=== PATIENT | female | born 1940 | race Caucasian/White ===

== ENCOUNTER 2018-02-22 07:03 | Inpatient (IN) | payer OTHER ==
[~2018-02-22] VITALS: Ht 165.1 cm; Wt 74.0 kg
[~2018-02-22 07:03] MED LIST: ACET325 PO; ASPI81CH PO; DOCU100 PO; Hair, Skin & N1 EACH PO; IBUP800 PO; MECL25 PO; METTREX2.5 PO; ROXICODONE5 MG PO; SULF500 PO; SULF500A PO; WOMEN MULTIVITAMIN PO
[2018-02-22 08:00] LABS: Hematocrit 27.7 % (33.0-51.0); Hemoglobin 9.4 g/dL (11.5-16.0); Mean Corpuscular HGB 30.1 pg (26.0-34.0); Mean Corpuscular HGB Conc 33.9 g/dL (31.5-36.5); Mean Corpuscular Volume 89 fL (80-100); Mean Platelet Volume 10.7 fL (9.1-12.4); Platelet Count 163 K/mm3 (150-400); RDW Coefficient Variation 14.6 % (11.7-14.2); RDW Standard Deviation 46.8 fL (35.1-46.3); Red Blood Cell Count 3.12 M/mm3 (3.80-5.20); White Blood Cell Count 4.16 K/mm3 (4.00-11.30)
[2018-02-22 08:20] LABS: Alanine Aminotransfer (ALT/SGP 96 U/L (12-78); Albumin, Blood 2.7 g/dL (3.4-5.0); Albumin/Globulin Ratio 0.7 (0.8-1.8); Alk Phos 206 U/L (50-136); Anion Gap 12 mmol/L (6-16); Aspartate Aminotrans (AST/SGOT 71 U/L (12-37); Bilirubin, Total 0.9 mg/dL (0.1-1.0); Blood Urea Nitrogen 19 mg/dL (8-24); Bun/Creatinine Ratio 18.4 (12.0-20.0); CO2, Blood 18 mmol/L (21-32); Calcium, Blood 8.4 mg/dL (8.5-10.1); Chloride, Blood 97 mmol/L (98-108); Creatinine, Blood 1.03 mg/dL (0.40-1.00); Globulin, Blood 3.8 g/dL (2.2-4.0); Glomerular Filtration Rate 55 (60-); Glucose, Blood 154 mg/dL (70-99); Potassium, Blood 3.9 mmol/L (3.5-5.5); Sodium, Blood 127 mmol/L (136-145); Total Protein, Blood 6.5 g/dL (6.4-8.2); Troponin I <0.015 ng/mL (0.000-0.040)
[2018-02-22 08:27] LABS: BAND PERCENT MAN 11 % (0-8); BASOPHILS PERCENT MAN 0 % (0-2); EOSINOPHILS PERCENT MAN 0 % (0-6); LYMPHOCYTES PERCENT MAN 17 % (21-46); MONOCYTES ABSOLUTE MAN 0.49 K/mm3 (0.16-1.47); MONOCYTES PERCENT MAN 12 % (4-13); NEUTROPHILS ABSOLUTE MAN 2.95 K/mm3 (1.96-9.15); SEG NEUTROPHILS PERCENT MAN 60 % (41-73); TOTAL CELLS COUNTED 100
[2018-02-23 04:52] LABS: Hematocrit 25.6 % (33.0-51.0); Hemoglobin 8.7 g/dL (11.5-16.0); Mean Corpuscular HGB 29.9 pg (26.0-34.0); Mean Corpuscular Volume 88 fL (80-100); Mean Platelet Volume 11.1 fL (9.1-12.4); Platelet Count 163 K/mm3 (150-400); RDW Coefficient Variation 14.7 % (11.7-14.2); RDW Standard Deviation 47.5 fL (35.1-46.3); Red Blood Cell Count 2.91 M/mm3 (3.80-5.20); White Blood Cell Count 5.55 K/mm3 (4.00-11.30)
[2018-02-23 05:13] LABS: Bun/Creatinine Ratio 20.2 (12.0-20.0); Calcium, Blood 8.3 mg/dL (8.5-10.1); Creatinine, Blood 1.29 mg/dL (0.40-1.00); Potassium, Blood 4.4 mmol/L (3.5-5.5)
[2018-02-23 05:21] LABS: BAND PERCENT MAN 11 % (0-8); BASOPHILS PERCENT MAN 0 % (0-2); EOSINOPHILS PERCENT MAN 0 % (0-6); LYMPHOCYTES ABSOLUTE MAN 0.88 K/mm3 (0.84-5.20); LYMPHOCYTES PERCENT MAN 16 % (21-46); MONOCYTES ABSOLUTE MAN 0.61 K/mm3 (0.16-1.47); MONOCYTES PERCENT MAN 11 % (4-13); NEUTROPHILS ABSOLUTE MAN 4.05 K/mm3 (1.96-9.15); SEG NEUTROPHILS PERCENT MAN 62 % (41-73); TOTAL CELLS COUNTED 100
[2018-02-23 13:22] LABS: Percent Saturation 6.5 % (15.0-50.0)
[2018-02-23 14:29] LABS: IMMATURE RETIC FRACTION 23.4 % (2.3-16.0); RETIC HGB EQUIVALENT 25.1 pg (28.20-36.60); RETICULOCYTE ABSOLUTE 0.0586 M/mm3 (0.0200-0.1100)
[2018-02-23 22:10] LABS: Stool Occult Blood Guaiac 1 Neg (Neg)
[2018-02-25 05:45] LABS: BASOPHILS ABSOLUTE AUTO 0.04 K/mm3 (0.00-0.23); BASOPHILS PERCENT AUTO 1 % (0-2); EOSINOPHILS ABSOLUTE AUTO 0.03 K/mm3 (0.00-0.68); EOSINOPHILS PERCENT AUTO 0 % (0-6); Hematocrit 28.8 % (33.0-51.0); Hemoglobin 9.6 g/dL (11.5-16.0); IMMATURE GRAN ABSOLUTE AUTO 0.11 K/mm3 (0.00-0.10); IMMATURE GRAN PERCENT AUTO 2 % (0-1); LYMPHOCYTES PERCENT AUTO 16 % (21-46); MONOCYTES ABSOLUTE AUTO 0.84 K/mm3 (0.16-1.47); MONOCYTES PERCENT AUTO 11 % (4-13); Mean Corpuscular HGB 29.4 pg (26.0-34.0); Mean Corpuscular HGB Conc 33.3 g/dL (31.5-36.5); Mean Corpuscular Volume 88 fL (80-100); Mean Platelet Volume 10.6 fL (9.1-12.4); NEUTROPHILS ABSOLUTE AUTO 5.25 K/mm3 (1.96-9.15); NEUTROPHILS PERCENT AUTO 70 % (41-73); NRBC ABSOLUTE 0.02 K/mm3 (0.00-0.02); NRBC Auto 0.3 /100 WBC (0.0-0.2); Platelet Count 215 K/mm3 (150-400); RDW Coefficient Variation 15.1 % (11.7-14.2); RDW Standard Deviation 49.2 fL (35.1-46.3); Red Blood Cell Count 3.26 M/mm3 (3.80-5.20); White Blood Cell Count 7.47 K/mm3 (4.00-11.30)
[2018-02-25 06:09] LABS: Albumin, Blood 2.5 g/dL (3.4-5.0); Albumin/Globulin Ratio 0.6 (0.8-1.8); Bilirubin, Total 0.6 mg/dL (0.1-1.0); Bun/Creatinine Ratio 25.9 (12.0-20.0); Calcium, Blood 8.5 mg/dL (8.5-10.1); Creatinine, Blood 1.12 mg/dL (0.40-1.00); Globulin, Blood 4.2 g/dL (2.2-4.0); Magnesium, Blood 2.1 mg/dL (1.6-2.4); Potassium, Blood 4.2 mmol/L (3.5-5.5); Total Protein, Blood 6.7 g/dL (6.4-8.2)
[2018-02-25] MEDS ORDERED: ACET325 PO (11:02)
[2018-02-25] MEDS ORDERED: AZIT250 PO (11:03)
[2018-02-25] MEDS ORDERED: GUAI600T33 PO (11:03)
[2018-02-25] MEDS ORDERED: XARELTO15 MG PO (11:04)
== END 2018-02-25 11:15 | disposition home or self-care (01) | DRG 291 ==
LOC: ER 07:03 → PCU 10:16 → MEDS 10:16 → PCU 02-23 19:30 → MEDS 02-24 13:58 → ENPENDDIS 02-25 10:00 → MEDS 02-25 11:15
PROVIDERS: Hospitalist; Internal Medicine; Physician Assistant
DX: I50.33 Acute on chronic diastolic (congestive) heart failure (principal); J18.9 Pneumonia, unspecified organism; E87.1 Hypo-osmolality and hyponatremia; R00.1 Bradycardia, unspecified; D64.9 Anemia, unspecified; M06.9 Rheumatoid arthritis, unspecified; I48.0 Paroxysmal atrial fibrillation; E83.51 Hypocalcemia; F17.210 Nicotine dependence, cigarettes, uncomplicated
CPT/HCPCS: 36415; 71046; 80048; 80053; 82272; 82330; 82607; 82728; 82746; 83540; 83550; 83735; 83880; 84145; 84443; 84484; 85025; 85045; 87070; 87205; 93005; 93010; 93306; 94640; 96365; 96368; 96375; 99285; J0456; J0696; J1885; J1940; J7050

== ENCOUNTER 2019-02-16 05:52 | Day surgery (SDC) | payer MEDICARE ==
[~2019-02-16] VITALS: Ht 165.1 cm; Wt 77.0 kg
[~2019-02-16 05:52] MED LIST changes: +AZIT250 PO; +GUAI600T33 PO; +XARELTO15 MG PO
[2019-02-16 06:44] LABS: BASOPHILS ABSOLUTE AUTO 0.03 K/mm3 (0.00-0.23); BASOPHILS PERCENT AUTO 0 % (0-2); EOSINOPHILS ABSOLUTE AUTO 0.02 K/mm3 (0.00-0.68); EOSINOPHILS PERCENT AUTO 0 % (0-6); Hematocrit 30.4 % (33.0-51.0); Hemoglobin 10.1 g/dL (11.5-16.0); IMMATURE GRAN ABSOLUTE AUTO 0.06 K/mm3 (0.00-0.10); IMMATURE GRAN PERCENT AUTO 1 % (0-1); LYMPHOCYTES ABSOLUTE AUTO 1.16 K/mm3 (0.84-5.20); LYMPHOCYTES PERCENT AUTO 12 % (21-46); MONOCYTES ABSOLUTE AUTO 0.48 K/mm3 (0.16-1.47); MONOCYTES PERCENT AUTO 5 % (4-13); Mean Corpuscular HGB 29.2 pg (26.0-34.0); Mean Corpuscular HGB Conc 33.2 g/dL (31.5-36.5); Mean Corpuscular Volume 88 fL (80-100); Mean Platelet Volume 9.7 fL (9.1-12.4); NEUTROPHILS ABSOLUTE AUTO 8.38 K/mm3 (1.96-9.15); NEUTROPHILS PERCENT AUTO 83 % (41-73); Platelet Count 250 K/mm3 (150-400); RDW Coefficient Variation 14.6 % (11.7-14.2); RDW Standard Deviation 46.7 fL (35.1-46.3); Red Blood Cell Count 3.46 M/mm3 (3.80-5.20); White Blood Cell Count 10.13 K/mm3 (4.00-11.30)
[2019-02-16] MEDS ORDERED: CRESTOR PO (06:47)
[2019-02-16] MEDS ORDERED: TORSE20 PO (06:48)
[2019-02-16] MEDS ORDERED: POTA10T PO (06:49)
[2019-02-16] MEDS ORDERED: Coq-10100 MG PO (06:50)
[2019-02-16] MEDS ORDERED: Norco 5-325 Ta1 EACH PO (06:51)
[2019-02-16 06:59] LABS: International Normalized Ratio 1.04
[2019-02-16 07:02] LABS: Bun/Creatinine Ratio 24.2 (12.0-20.0); Calcium, Blood 8.4 mg/dL (8.5-10.1); Creatinine, Blood 1.28 mg/dL (0.40-1.00); Potassium, Blood 4.3 mmol/L (3.5-5.5)
--- NOTE | 2019-02-16 09:24 | NUR ---
PT RETURNED TO RECOVERY ROOM ON BED. PT DENIES CHEST PAIN. PT DRINKING COFFEE AND EATING BREAKFAST WITH CALL LIGHT IN REACH. LACW PACERMAKER SITE STABLE WITH PRESSURE DRESSING AND ICE BAG OVER SITE. PT'S IN ROOM.
--- NOTE | 2019-02-16 09:41 | NUR ---
2LB WT PLACED OVER LACW DPPM SITE.
--- NOTE | 2019-02-16 09:49 | NUR ---
LUNG TONES DIMINISHED UPPER LOBES WITH SLIGHT EXPIRATORY WHEEZES. BILAT LOWER LOBES COARSE; PT HAS NON PRODUCTIVE COUGH.
--- NOTE | 2019-02-16 11:49 | NUR ---
DISCHARGE INSTRUCTIONS REVIEWED ALL QUESTIONS ANSWERED. FULL REPORT PROVIDED ESPERANZA TO ASSUME CARE OF PT. HIRO GARCIA TO INTERROGATE DEVICE PER DR SLATER PRIOR TO DISCHARGE. DR SLATER HAS REVIEWED XRAY.
== END 2019-02-16 12:45 | disposition home or self-care (01) ==
LOC: MHTC 05:52 → ORSCMMR 05:52 → MHTC 05:54
PROVIDERS: Internal Medicine Cardiovascular Disease
DX: I44.30 Unspecified atrioventricular block (principal); I10 Essential (primary) hypertension; I48.0 Paroxysmal atrial fibrillation; E78.5 Hyperlipidemia, unspecified; F17.210 Nicotine dependence, cigarettes, uncomplicated; Z79.899 Other long term (current) drug therapy; Z79.01 Long term (current) use of anticoagulants; Z88.8 Allergy status to other drugs, medicaments and biological substances; Z88.2 Allergy status to sulfonamides
CPT/HCPCS: 33208; 71046; 80048; 85025; 85610; 93005; 93010; 99152; 99153; C1785; C1898; J0690; J1644; J1940; J2250; J3010; J7030; J7040

== ENCOUNTER 2021-12-05 17:35 | Inpatient (IN) | payer MEDICARE ==
[~2021-12-05] VITALS: Ht 162.6 cm; Wt 63.5 kg
[~2021-12-05 17:35] MED LIST changes: +CRESTOR PO; +Coq-10100 MG PO; +Norco 5-325 Ta1 EACH PO; +POTA10T PO; +TORSE20 PO
[2021-12-05 18:13] LABS: Hematocrit 32.2 % (33.0-51.0); Hemoglobin 11.1 g/dL (11.5-16.0); Mean Corpuscular HGB 26.6 pg (26.0-34.0); Mean Corpuscular HGB Conc 34.5 g/dL (31.5-36.5); Mean Corpuscular Volume 77 fL (80-100); Mean Platelet Volume 10.7 fL (9.1-12.4); Platelet Count 147 K/mm3 (150-400); RDW Coefficient Variation 17.1 % (11.7-14.2); RDW Standard Deviation 47.9 fL (35.1-46.3); Red Blood Cell Count 4.18 M/mm3 (3.80-5.20)
[2021-12-05 18:16] LABS: BASOPHILS ABSOLUTE AUTO 0.01 K/mm3 (0.00-0.23); BASOPHILS PERCENT AUTO 1 % (0-2); EOSINOPHILS PERCENT AUTO 0 % (0-6); IMMATURE GRAN ABSOLUTE AUTO 0.01 K/mm3 (0.00-0.10); IMMATURE GRAN PERCENT AUTO 1 % (0-1); LYMPHOCYTES ABSOLUTE AUTO 0.42 K/mm3 (0.84-5.20); LYMPHOCYTES PERCENT AUTO 42 % (21-46); MONOCYTES ABSOLUTE AUTO 0.12 K/mm3 (0.16-1.47); MONOCYTES PERCENT AUTO 12 % (4-13); NEUTROPHILS ABSOLUTE AUTO 0.43 K/mm3 (1.96-9.15); NEUTROPHILS PERCENT AUTO 44 % (41-73)
[2021-12-05 18:28] LABS: Bun/Creatinine Ratio 28.4 (12.0-20.0); Calcium, Blood 8.5 mg/dL (8.5-10.1); Creatinine, Blood 1.41 mg/dL (0.40-1.00); Magnesium, Blood 1.6 mg/dL (1.6-2.4)
[2021-12-05 18:36] LABS: White Blood Cell Count 0.99 K/mm3 (4.00-11.30)
[2021-12-06] MEDS ORDERED: FURO20 PO (00:12)
[2021-12-06] MEDS ORDERED: Crestor20 MG PO (00:14)
[2021-12-06] MEDS ORDERED: Prednisone10 MG PO (00:15)
[2021-12-06] MEDS ORDERED: AZIT250 PO (00:16)
[2021-12-06 04:30] LABS: Hematocrit 31.4 % (33.0-51.0); Hemoglobin 10.6 g/dL (11.5-16.0); Mean Corpuscular HGB 26.4 pg (26.0-34.0); Mean Corpuscular HGB Conc 33.8 g/dL (31.5-36.5); Mean Corpuscular Volume 78 fL (80-100); Mean Platelet Volume 9.8 fL (9.1-12.4); Platelet Count 116 K/mm3 (150-400); RDW Coefficient Variation 17.2 % (11.7-14.2); RDW Standard Deviation 48.9 fL (35.1-46.3); Red Blood Cell Count 4.02 M/mm3 (3.80-5.20)
[2021-12-06 04:47] LABS: White Blood Cell Count 0.77 K/mm3 (4.00-11.30)
[2021-12-06 04:51] LABS: Albumin/Globulin Ratio 0.5 (0.8-1.8); Bilirubin, Total 0.5 mg/dL (0.1-1.0); Bun/Creatinine Ratio 24.8 (12.0-20.0); Calcium, Blood 8.5 mg/dL (8.5-10.1); Creatinine, Blood 1.33 mg/dL (0.40-1.00); Globulin, Blood 4.2 g/dL (2.2-4.0); Potassium, Blood 4.6 mmol/L (3.5-5.5); Total Protein, Blood 6.2 g/dL (6.4-8.2)
[2021-12-06 04:59] LABS: BAND PERCENT MAN 10 % (0-8); BASOPHILS PERCENT MAN 0 % (0-2); EOSINOPHILS PERCENT MAN 0 % (0-6); LYMPHOCYTES ABSOLUTE MAN 0.41 K/mm3 (0.84-5.20); LYMPHOCYTES PERCENT MAN 54 % (21-46); MONOCYTES ABSOLUTE MAN 0.13 K/mm3 (0.16-1.47); MONOCYTES PERCENT MAN 18 % (4-13); NEUTROPHILS ABSOLUTE MAN 0.21 K/mm3 (1.96-9.15); SEG NEUTROPHILS PERCENT MAN 18 % (41-73); TOTAL CELLS COUNTED 50
--- NOTE | 2021-12-06 05:31 | NUR ---
ADMISSION: PT IS A/OX4. SHE CAME IN D/T A WORSENING AND SOB. SHE DOES NOT USE O2 AT BASELINE AND HAS BEEN ON 4L HERE TO STAY >90%. SHE WAS COVID - DOWN IN THE ED. SHE IS STEADY ON HER FEET, BUT WAS ASKED TO USE THE CALL LIGHT IF GETTING OOB. HER WBC WAS 0.77 DOWN FROM 0.99 AND THE MD WAS NOTIFIED W/ NO NEW ORDERS. SHE HAS BEEN PLEASANT AND COOPERATIVE WITH ALL CARE. HER CALL LIGHT IS WITHIN REACH AND WE'LL CONTINUE TO MONITOR.
--- NOTE | 2021-12-06 05:41 | NUR ---
SHIFT SUMMARY: THE PT IS A/OX4. SHE STILL HAS THE URINE FREQUENCY D/T THE BUMEX. SHE HAS BEEN A 1 PA TO THE [facility]. SHE HAS BEEN UNDERSTANDING ABOUT STAYING ONE MORE NIGHT AT THE HOSPITAL. SHE SHOULD BE DISCHARGING TO [facility] TODAY. WE'LL CONTINUE TO MONITOR.
--- NOTE | 2021-12-06 17:48 | NUR ---
SHIFT SUMMARY PT A&O X4 AND IN PLEASENT MOOD T/O SHIFT. FAMILY IN TO SEE DURING VISITING HOURS. RESTED IN BED T/O MOST OF SHIFT, RECLINER PROVIDED FOR INCREASED COMFORT. 2L NC >90 @ THIS TIME. PRODUCTIVE COUGH, DENIES CP/PRESSURE. VSS. CALL LIGHT W/IN REACH. TELE & CONT. PULSE OX IN PLACE.
--- NOTE | 2021-12-07 04:09 | NUR ---
IS PROJECT MANAGER SUMMARY AWAKE AT INTERVALS WITH ASSISTANCE TO BATHROOM AND CONTINUOUS PULSE OX MONITORING. FINGER PROBE CHANGED, PULSE OX QUIET AND PT WAS ABLE TO REST QUIETLY SINCE. O2 REMAINS AT 2L/MIN. MED TSB PACED IN THE 'S. CURRENTLY ERSTING QUIETLY. NEUTROPENIC PRECAUTIONS MAINTAINED DUE TO LOW WBC COUNT
[2021-12-07 04:13] LABS: BASOPHILS ABSOLUTE AUTO 0.03 K/mm3 (0.00-0.23); BASOPHILS PERCENT AUTO 2 % (0-2); Hematocrit 29.7 % (33.0-51.0); Hemoglobin 10.1 g/dL (11.5-16.0); Mean Corpuscular Volume 77 fL (80-100); Mean Platelet Volume 10.5 fL (9.1-12.4); Platelet Count 100 K/mm3 (150-400); RDW Coefficient Variation 17.2 % (11.7-14.2); RDW Standard Deviation 47.9 fL (35.1-46.3); Red Blood Cell Count 3.88 M/mm3 (3.80-5.20); White Blood Cell Count 1.77 K/mm3 (4.00-11.30)
[2021-12-07 04:17] LABS: EOSINOPHILS PERCENT AUTO 0 % (0-6); IMMATURE GRAN ABSOLUTE AUTO 0.08 K/mm3 (0.00-0.10); IMMATURE GRAN PERCENT AUTO 5 % (0-1); LYMPHOCYTES ABSOLUTE AUTO 0.89 K/mm3 (0.84-5.20); LYMPHOCYTES PERCENT AUTO 50 % (21-46); MONOCYTES PERCENT AUTO 11 % (4-13); NEUTROPHILS ABSOLUTE AUTO 0.57 K/mm3 (1.96-9.15); NEUTROPHILS PERCENT AUTO 32 % (41-73)
[2021-12-07 04:26] LABS: Bun/Creatinine Ratio 22.7 (12.0-20.0); Calcium, Blood 8.2 mg/dL (8.5-10.1); Creatinine, Blood 1.19 mg/dL (0.40-1.00); Potassium, Blood 3.8 mmol/L (3.5-5.5)
[2021-12-08 05:23] LABS: Hematocrit 28.1 % (33.0-51.0); Hemoglobin 9.4 g/dL (11.5-16.0); Mean Corpuscular HGB 25.9 pg (26.0-34.0); Mean Corpuscular HGB Conc 33.5 g/dL (31.5-36.5); Mean Corpuscular Volume 77 fL (80-100); Mean Platelet Volume 11.5 fL (9.1-12.4); Platelet Count 108 K/mm3 (150-400); RDW Coefficient Variation 17.4 % (11.7-14.2); RDW Standard Deviation 49.7 fL (35.1-46.3); Red Blood Cell Count 3.63 M/mm3 (3.80-5.20); White Blood Cell Count 2.08 K/mm3 (4.00-11.30)
--- NOTE | 2021-12-08 05:47 | NUR ---
Alert and oriented x's 4. Medicated with hydrocodone due to generalized pain, effective relief. Respirations even and unlabored, RA, denies SOB. continuous pulse ox in place. Slept well through night. Safety maintained, call gill in reach.
[2021-12-08 06:06] LABS: Bun/Creatinine Ratio 23.9 (12.0-20.0); Calcium, Blood 8.7 mg/dL (8.5-10.1); Creatinine, Blood 1.55 mg/dL (0.40-1.00); Potassium, Blood 4.2 mmol/L (3.5-5.5)
--- NOTE | 2021-12-08 11:33 | NUR ---
PATIENT BARELY MAINTAINS 90-93% O2 SAT RESTING IN BED PLEASE ORDER HOME O2 EVAL PRIOR TO PLACING DC ORDERS ON PATIENT. PROVIDER STATED HE WILL PLACE ORDERS ON THIS PATIENT.
[2021-12-08] MEDS ORDERED: DOXY100 PO (13:14)
[2021-12-08] MEDS ORDERED: AMOCLA875 PO (13:15)
[2021-12-08] MEDS ORDERED: VISBIOME 112.51 EACH PO (13:15)
[2021-12-08] MEDS ORDERED: ROBITUSSIN DM PO (13:25)
[2021-12-08] MEDS ORDERED: MIRALAX17 GM PO (13:26)
--- NOTE | 2021-12-08 15:46 | NUR ---
PATIENT AND SPOUSE TAUGHT ABOUT MEDICATIONS AND FOLLOW UP APPOINTEMENTS PATIENT AND SPOUSE HAVE NO QUESTIONS. PAPER TEACHING GIVEN. PATIENT LEFT IN PERSONAL CAR BY SPOUSE AT 1520
== END 2021-12-08 15:26 | disposition home or self-care (01) | DRG 871 ==
LOC: ER 17:35 → MEDS 22:17
PROVIDERS: Internal Medicine; Student in an Organized Health Care Education/Training Program; ADMIT Internal Medicine
DX: A41.9 Sepsis, unspecified organism (principal); J18.9 Pneumonia, unspecified organism; J96.01 Acute respiratory failure with hypoxia; I50.32 Chronic diastolic (congestive) heart failure; E87.1 Hypo-osmolality and hyponatremia; N17.9 Acute kidney failure, unspecified; Z66 Do not resuscitate; E87.6 Hypokalemia; N18.30 Chronic kidney disease, stage 3 unspecified; M06.9 Rheumatoid arthritis, unspecified; I48.91 Unspecified atrial fibrillation; Z88.2 Allergy status to sulfonamides; Z88.5 Allergy status to narcotic agent; Z28.21 Immunization not carried out because of patient refusal; Z95.0 Presence of cardiac pacemaker; Z79.01 Long term (current) use of anticoagulants; Z79.899 Other long term (current) drug therapy; Z98.51 Tubal ligation status; Z85.72 Personal history of non-Hodgkin lymphomas; Z98.890 Other specified postprocedural states; Z87.891 Personal history of nicotine dependence
CPT/HCPCS: 36415; 71045; 71046; 80048; 80053; 83605; 83735; 83880; 84145; 85025; 85027; 87040; 93005; 93010; 93306; 94640; 94761; 94762; 96365; 96366; 96375; 99285-25; A9270; J0696; J1940; J3480; J7120

== ENCOUNTER 2023-08-24 09:32 | Emergency (ER) | payer MEDICARE ==
[~2023-08-24] VITALS: Ht 165.1 cm; Wt 76.2 kg
[~2023-08-24 09:32] MED LIST changes: +AMOCLA875 PO; +Crestor20 MG PO; +DOXY100 PO; +FURO20 PO; +MIRALAX17 GM PO; +Prednisone10 MG PO; +ROBITUSSIN DM PO; +VISBIOME 112.51 EACH PO
[2023-08-24 09:57] VITALS: BP 117/76
== END 2023-08-24 11:55 | disposition home or self-care (01) ==
LOC: ER 09:32
DX: M17.12 Unilateral primary osteoarthritis, left knee (principal); M06.9 Rheumatoid arthritis, unspecified; F17.200 Nicotine dependence, unspecified, uncomplicated; Z88.2 Allergy status to sulfonamides; Z88.5 Allergy status to narcotic agent; Z79.899 Other long term (current) drug therapy; Z79.01 Long term (current) use of anticoagulants
CPT/HCPCS: 73562-LT; 99283-25

== ENCOUNTER 2023-09-06 11:00 | Emergency (ER) | payer MEDICARE ==
[~2023-09-06] VITALS: Ht 165.1 cm; Wt 80.3 kg
[2023-09-06 12:50] LABS: BASOPHILS ABSOLUTE AUTO 0.05 K/mm3 (0.00-0.23); BASOPHILS PERCENT AUTO 1 % (0-2); EOSINOPHILS ABSOLUTE AUTO 0.01 K/mm3 (0.00-0.68); EOSINOPHILS PERCENT AUTO 0 % (0-6); Hematocrit 34.3 % (33.0-51.0); Hemoglobin 11.5 g/dL (11.5-16.0); IMMATURE GRAN ABSOLUTE AUTO 0.11 K/mm3 (0.00-0.10); IMMATURE GRAN PERCENT AUTO 1 % (0-1); LYMPHOCYTES ABSOLUTE AUTO 1.17 K/mm3 (0.84-5.20); LYMPHOCYTES PERCENT AUTO 12 % (21-46); MONOCYTES PERCENT AUTO 6 % (4-13); Mean Corpuscular HGB Conc 33.5 g/dL (31.5-36.5); Mean Corpuscular Volume 90 fL (80-100); NEUTROPHILS ABSOLUTE AUTO 7.81 K/mm3 (1.96-9.15); NEUTROPHILS PERCENT AUTO 80 % (41-73); Platelet Count 505 K/mm3 (150-400); RDW Coefficient Variation 15.9 % (11.7-14.2); Red Blood Cell Count 3.83 M/mm3 (3.80-5.20); White Blood Cell Count 9.75 K/mm3 (4.00-11.30)
[2023-09-06 13:14] LABS: Albumin, Blood 2.3 g/dL (3.4-5.0); Albumin/Globulin Ratio 0.6 (0.8-1.8); Bilirubin, Total 0.6 mg/dL (0.1-1.0); Bun/Creatinine Ratio 20.3 (12.0-20.0); Calcium, Blood 8.5 mg/dL (8.5-10.1); Creatinine, Blood 0.94 mg/dL (0.40-1.00); Potassium, Blood 2.9 mmol/L (3.5-5.5); Total Protein, Blood 6.3 g/dL (6.4-8.2)
[2023-09-06 13:38] LABS: Influenza A, PCR NEGATIVE (NEGATIVE); Influenza B, PCR NEGATIVE (NEGATIVE); Resp Syncytial Virus, PCR NEGATIVE (NEGATIVE); SARS-Cov-2 (COVID-19) PCR, MMC NEGATIVE (NEGATIVE)
[2023-09-06 14:33] VITALS: BP 137/61
== END 2023-09-06 15:46 | disposition home or self-care (01) ==
LOC: ER 11:00
PROVIDERS: Emergency Medicine
DX: J06.9 Acute upper respiratory infection, unspecified (principal); B97.89 Other viral agents as the cause of diseases classified elsewhere; M71.21 Synovial cyst of popliteal space [Baker], right knee; M06.9 Rheumatoid arthritis, unspecified; N18.30 Chronic kidney disease, stage 3 unspecified; I50.32 Chronic diastolic (congestive) heart failure; I48.91 Unspecified atrial fibrillation; F17.210 Nicotine dependence, cigarettes, uncomplicated; Z11.52 Encounter for screening for COVID-19; Z88.2 Allergy status to sulfonamides; Z88.5 Allergy status to narcotic agent; Z79.01 Long term (current) use of anticoagulants; Z79.899 Other long term (current) drug therapy
CPT/HCPCS: 0241U; 71045; 80053; 83880; 84484; 85025; 93005; 93010; 93971; 99285-25

== ENCOUNTER → 2024-08-05 | Outpatient (CLI) | payer MEDICARE ==
[2024-08-05 17:35] LABS: Calcium, Urine 11.8 mg/dL (< 17.5)
== END ==
LOC: LAB SHORT 09:15 → LAB 09:15
PROVIDERS: Physician Assistant Medical
DX: E83.52 Hypercalcemia (principal)
CPT/HCPCS: 81050; 82340

== ENCOUNTER 2025-05-24 12:38 | Day surgery (SDC) | payer OTHER ==
[~2025-05-24] VITALS: Ht 162.6 cm; Wt 52.6 kg
[~2025-05-24 12:38] MED LIST changes: +Balanced Salt Epinephrine Irrigation Solution 500 mL IR SCH; +Moxifloxacin HCL 0.5 MG/0.1 ML 0.4MLSYR RIGHTEYE SCH; +Ondansetron 4 MG SoluTab MM PRN; +PHENYLEPHRINE\\TROPICAMIDE\\TETRACAINE OPHTHALMIC DILATING SOLN RIGHTEYE PRN; +Povidone-Iodine 450 DROP/30 ML Solution ONE; +Povidone-Iodine 450 DROP/30 ML Solution RIGHTEYE SCH; +Tetracaine HCl/Pf 0.5% Opth Soln 4 ml ONE; +diazePAM 5 MG,diazePAM 2 MG PO SCH
[2025-05-24] MEDS ORDERED: HYDROCODONE-AC1 EA19 PO (13:10)
--- NOTE | 2025-05-24 13:50 | NUR ---
05/24/25 1350 Kalina Jensen HR:83 BP:111/58 SPO2:98% ON 10L BLOW BY O2
[2025-05-24 14:10] VITALS: BP 142/66
--- NOTE | 2025-05-24 14:15 | NUR ---
05/24/25 1415 Elizabet Kessler UNSTEAMARIAM R/T RA TRANSFERRING TO CHAIR. NO AMBULATORY AID BROUGHT. HANDS DISFIGURED RT RA.
== END 2025-05-24 14:29 | disposition home or self-care (01) ==
LOC: ORSCSDS 12:38
PROVIDERS: Student in an Organized Health Care Education/Training Program
PROC: 08RJ3JZ Replacement of Right Lens with Synthetic Substitute, Percutaneous Approach (ICD-10-PCS; principal; 2025-05-24 14:00)
DX: H25.813 Combined forms of age-related cataract, bilateral (principal); F17.210 Nicotine dependence, cigarettes, uncomplicated; I48.91 Unspecified atrial fibrillation; I10 Essential (primary) hypertension; E78.5 Hyperlipidemia, unspecified; Z79.01 Long term (current) use of anticoagulants; Z79.899 Other long term (current) drug therapy
CPT/HCPCS: A9270; V2632

== ENCOUNTER 2025-06-01 13:05 | Day surgery (SDC) | payer OTHER ==
[~2025-06-01] VITALS: Ht 162.6 cm; Wt 52.1 kg
[~2025-06-01 13:05] MED LIST changes: +HYDROCODONE-AC1 EA19 PO; +Moxifloxacin HCL 0.5 MG/0.1 ML 0.4MLSYR LEFTEYE SCH; -Moxifloxacin HCL 0.5 MG/0.1 ML 0.4MLSYR RIGHTEYE SCH; +PHENYLEPHRINE\\TROPICAMIDE\\TETRACAINE OPHTHALMIC DILATING SOLN LEFTEYE PRN; -PHENYLEPHRINE\\TROPICAMIDE\\TETRACAINE OPHTHALMIC DILATING SOLN RIGHTEYE PRN; +Povidone-Iodine 450 DROP/30 ML Solution LEFTEYE SCH; -Povidone-Iodine 450 DROP/30 ML Solution RIGHTEYE SCH
--- NOTE | 2025-06-01 13:40 | NUR ---
06/01/25 1340 Cristin Tracey PT STATES ANXIETY WAS A 11/01. VALIUM 7MG GIVEN AT 1330. PULSE OXIMETRY IN PLACE SHOWING SPO2 OF 99% ON RA. TETRACAINE IN AT 1332 PLEDGETT IN AT 1333 PT TOLERATED WILL BEDSIDE RAILS UP, CALL LIGHT IN REACH.
--- NOTE | 2025-06-01 13:54 | NUR ---
06/01/25 1354 MADONNA WEST pt vss t/o PROCEDURE 148/67 HR 65 O2 100% ON BLOWBY
[2025-06-01 14:15] VITALS: BP 145/64
--- NOTE | 2025-06-01 14:18 | NUR ---
06/01/25 1418 Elsie Elizondo WARM BLANKETS APPLIED
== END 2025-06-01 14:33 | disposition home or self-care (01) ==
LOC: ORSCSDS 13:05
PROVIDERS: Student in an Organized Health Care Education/Training Program
PROC: 08RK3JZ Replacement of Left Lens with Synthetic Substitute, Percutaneous Approach (ICD-10-PCS; principal; 2025-06-01 14:30)
DX: H25.812 Combined forms of age-related cataract, left eye (principal); Z96.1 Presence of intraocular lens; I48.91 Unspecified atrial fibrillation; I10 Essential (primary) hypertension; E78.5 Hyperlipidemia, unspecified; Z85.72 Personal history of non-Hodgkin lymphomas; Z79.01 Long term (current) use of anticoagulants; Z79.899 Other long term (current) drug therapy; F17.210 Nicotine dependence, cigarettes, uncomplicated
CPT/HCPCS: A9270; J2003; V2632